=== PATIENT | female | born 1985 | race Caucasian/White ===

== ENCOUNTER 2021-10-21 12:51 | Emergency (ER) | payer OTHER ==
[~2021-10-21] VITALS: Ht 177.8 cm; Wt 98.9 kg
--- NOTE | 2021-10-21 13:18 | PHYS DOC ---
Past Medical History Past Surgical History: Tonsillectomy, Other Additional Past Surgical Histo: General Adult EDM: Chief Complaint: ABDOMINAL PAIN HPI: HPI: Patient is a 36-year-old female presents emergency department complaining of epigastric pain since last Thursday. Patient reports discomfort comes and goes, describes as sometimes burning, sometimes pressure, sometimes pain. Patient reports currently a pressure feeling that radiates to her mid to upper back without other radiation. Patient does report nausea, denies vomiting, reports 1 diarrhea spell today. Patient states she thinks she was constipated but had large bowel movement today. Patient reports a history of gallbladder and pancreatitis attack 14 years ago, is unsure the source of disease. Patient reports symptoms worse at night when she lies down to sleep, denies changes in symptoms with eating food or drinking fluids. Patient has not taken any medications for her epigastric pain symptoms. Patient denies vaginal discharge, rashes to her vagina, STI concerns, increased urinary pressure, urinary burning, or other dysuria, chest pains, shortness of breath, syncopal or near syncopal episodes. Patient denies chest congestion. States she has received the COVID- 19 virus vaccine series with booster. Also states her tested +3 weeks ago. Patient denies history of cigarette smoking, reports drinking alcohol 1-2 times a month on occasion, denies illicit drug use. Denies a family history of cardiac disease or sudden cardiac . Reports mom at age 52 from lung cancer, dad is alive and has CCL cancer. Patient denies allergies to medications, reports taking a vitamin, probiotic, recently took DayQuil for which he describes as cold-like signs and symptoms that have resolved. Patient reports her last menstrual cycle was 2 weeks ago with heavier flow than normal, reports stopping her control pills at the end of August related to her having a vasectomy. Denies surgical history. Patient denies oth er physical complaints or physical concerns. Review of Systems: Review of Systems: 14 body systems of review of systems have been reviewed. See HPI for pertinent positives and negative responses, otherwise all other systems are negative, nonpertinent or noncontributory. Constitutional: Negative except as outlined in HPI above. Skin: Negative except as outlined in HPI above. Eyes: Negative except as outlined in HPI above. HENT: Negative except as outlined in HPI above. Respiratory: Negative except as outlined in HPI above. Cardiovascular: Negative except as outlined in HPI above. GI: Negative except as outlined in HPI above. : Negative except as outlined in HPI above. Musculoskeletal: Negative except as outlined in HPI above. Integument: Negative except as outlined in HPI above. Neurologic: Negative except as outlined in HPI above. Endocrine: Negative except as outlined in HPI above. Lymphatic: Negative except as outlined in HPI above. Psychiatric: Negative except as outlined in HPI above. Heart Score: C/O Chest Pain: No Risk Factors: Risk Factors: DM, Current or recent (<one month) smoker, HTN, HLP, family history of CAD, obesity. Risk Scores: Score 0 - 3: 2.5% MACE over next 6 weeks - Discharge Home Score 4 - 6: 20.3% MACE over next 6 weeks - Admit for Clinical Observation Score 7 - 10: 72.7% MACE over next 6 weeks - Early Invasive Strategies Allergies: Allergies: Allergies Coded Allergies Type Severity Reaction Last Updated Verified No Known Drug Allergies 10/21/21 No Physical Exam: PE: Constitutional: Well developed, well nourished, no acute distress, non-toxic appearance. 36-year-old female in no apparent distress. HENT: Normocephalic, atraumatic. Eyes: Conjunctiva normal, no discharge. Neck: Normal range of motion, no stridor. Cardiovascular: No cyanosis appreciated, distal cap refill less than 2 seconds. Lungs & Thorax: Patient is in no respiratory distress, no audible adventitious lung sounds appreciated. Abdomen: Abdomen soft, no masses or megaly, normal bowel sounds all 4 quadrants, pain to palpation at epigastric area, no Silva sign, no rebound tenderness, negative psoas sign, negative straight leg raise sign. No bruising or abnormal discoloration of the abdomen, no surgical scars present. Skin: Warm, dry, no erythema, no rash. Back: No tenderness, no deformities. Extremities: No tenderness, no cyanosis, no clubbing, ROM intact, no edema. Neurologic: Alert and oriented X 3, normal motor function, normal sensory function, no focal deficits noted. Psychologic: Affect normal, judgement normal, mood normal. Current Patient Data: Labs: Laboratory Tests Test 10/21/21 13:14 10/21/21 13:20 10/21/21 13:35 10/21/21 14:08 Urine Collection Type Unknown Urine Color Yellow Urine Clarity Clear Urine pH 6.0 Urine Specific [place] 1.015 Urine Protein Negative mg/dL Urine Glucose (UA) Negative mg/dL Urine Ketones (Stick) Negative mg/dL Urine Blood Negative Urine Nitrite Negative Urine Bilirubin Negative Urine Urobilinogen Dipstick 0.2 mg/dL Urine Leukocyte Esterase Negative Urine RBC Occ /HPF Urine WBC 1-4 /HPF Urine Squamous Epithelial Cells Mod /LPF Urine Bacteria Many /HPF Urine Mucus Slight /LPF Bedside Urine HCG, Qualitative Hcg negative White Blood Count 8.5 x10^3/uL Red Blood Count 5.13 x10^6/uL Hemoglobin 13.7 g/dL Hematocrit 42.0 % Mean Corpuscular Volume 82 fL Mean Corpuscular Hemoglobin 27 pg Mean Corpuscular Hemoglobin Concent 33 g/dL Red Cell Distribution Width 13.9 % Platelet Count 307 x10^3/uL Neutrophils (%) (Auto) 56 % Lymphocytes (%) (Auto) 34 % Monocytes (%) (Auto) 9 % Eosinophils (%) (Auto) 1 % Basophils (%) (Auto) 1 % Neutrophils # (Auto) 4.8 x10^3/uL Lymphocytes # (Auto) 2.9 x10^3/uL Monocytes # (Auto) 0.7 x10^3/uL Eosinophils # (Auto) 0.1 x10^3/uL Basophils # (Auto) 0.0 x10^3/uL Sodium Level 142 mmol/L Potassium Level 3.8 mmol/L Chloride Level 103 mmol/L Carbon Dioxide Level 27 mmol/L Anion Gap 12 Blood Urea Nitrogen 9 mg/dL Creatinine 0.7 mg/dL Estimated GFR (Cockcroft-Gault) 95.8 BUN/Creatinine Ratio 13 Glucose Level 89 mg/dL Calcium Level 8.5 mg/dL Total Bilirubin 0.4 mg/dL Aspartate Amino Transf (AST/SGOT) 16 U/L Alanine Aminotransferase (ALT/SGPT) 45 U/L Alkaline Phosphatase 80 U/L Troponin I High Sensitivity < 4 ng/L Total Protein 8.1 g/dL Albumin 3.8 g/dL Albumin/Globulin Ratio 0.9 Lipase 101 U/L Influenza Type A Antigen Negative Influenza Type B Antigen Negative SARS-CoV-2 Antigen (Rapid) Negative Current Medications Medications (Trade) Dose Ordered Sig/Simona Route PRN Reason Start Time Stop Time Status Last Admin Dose Admin Sodium Chloride 1,000 ml @ 1,000 mls/hr 1X ONCE IV 10/21/21 14:00 10/21/21 14:59 DC 10/21/21 13:52 Ondansetron HCl (Zofran) 4 mg 1X ONCE IVP 10/21/21 14:00 10/21/21 14:01 DC 10/21/21 13:53 Iohexol (Omnipaque 300 Mg/ml) 75 ml 1X ONCE IV 10/21/21 14:00 10/21/21 14:01 DC 10/21/21 14:20 Info (CONTRAST GIVEN -- Rx MONITORING) 1 each PRN DAILY PRN MC SEE COMMENTS 10/21/21 14:00 10/23/21 13:59 Multi-Ingredient Mouthwash/Gargle (Gi Cocktail) 20 ml 1X ONCE SWSW 10/21/21 14:15 10/21/21 14:17 DC 10/21/21 14:14 Iohexol (Omnipaque 300 Mg/ml) 75 ml 1X ONCE IV 10/21/21 14:15 10/21/21 14:17 DC Vital Signs: Vital Signs Date Time Temp Pulse Resp B/P (MAP) Pulse Ox O2 Delivery O2 Flow Rate FiO2 10/21/21 13:03 98.2 76 18 156/90 (112) 98 Room Air 98.2 EKG: EKG: EKG performed at 1405 by ED nursing staff shows a normal sinus rhythm without other ectopy, heart rate 61 bpm, NV interval 0.176, QTc interval 0.408, no acute STEMI, no ACS, no acute ischemia appreciated, EKG interpreted by ED attending physician Dr. Barrios. Radiology/Procedures: Radiology/Procedures: PROCEDURE: CHEST AP ONLY EXAM: Chest, single view. HISTORY: Epigastric pain. COMPARISON: None. FINDINGS: A frontal view of the chest is obtained. There is increased opacif ication of the lower thorax due to asymmetric overlying soft tissues. There is no consolidation, pleural effusion or pneumothorax. The heart is normal in size. IMPRESSION: No acute pulmonary finding. Electronically signed by: Lovely Sesay MD (10/21/2021 2:01 PM) [id number] REASON: Epigastric pain, history of pancreas/gallbladder disease PROCEDURE: ABDOMEN LTD EXAM: Abdomen sonogram. HISTORY: Epigastric pain. TECHNIQUE: Sonographic imaging of the abdomen was performed. COMPARISON: None. FINDINGS: The liver is normal in size. No hepatic lesion is seen. The gallbladder is unremarkable. The common bile duct is normal in caliber. The right kidney, pancreas and inferior vena cava are unremarkable. IMPRESSION: No acute sonographic finding. Electronically signed by: Lovely Sesay MD (10/21/2021 2:09 PM) [id number] REASON: Epigastric pain history of pancreatitis and gallbladder disease PROCEDURE: CT ABD PELV W/ IV CONTRST ONLY Examination: CT of the abdomen pelvis with IV contrast HISTORY: History of epigastric pain, pancreatitis COMPARISON: 07/22/2012 TECHNIQUE: Axial CT images of abdomen is performed with IV contrast. Coronal and sagittal reformats are performed. Exposure: One or more of the following individualized dose reduction techniques were utilized for this examination: 1. Automated exposure control 2. Adjustment of the mA and/or kV according to patient size 3. Use of iterative reconstruction technique. Findings: The bibasilar lungs are clear. No evidence of free air identified in the abdomen The liver, spleen, adrenals grossly appears unremarkable. The gallbladder is mildly distended. The stomach is mildly distended with visualized pancreas grossly appears unremarkable. The small bowel is nondilated. Feces and gas noted in the colon. The bilateral kidneys enhance symmetrically. No evidence of lytic bony destructive lesion. IMPRESSION: No acute intra-abdominal findings. Electronically signed by: Geovani Dean MD (10/21/2021 2:58 PM) [id number] Course & Med Decision Making: Course & Med Decision Making Pertinent Labs and Imaging studies reviewed. (See chart for details) 36-year-old female, vital signs reviewed, presents emerged from concerning epigastric pain since last Thursday. Patient does report a history of pancreatitis and gallbladder attack 14 years ago, physical examination concerning for gastritis versus dyspepsia versus gallbladder/pancreatitis disease. Will order urinalysis assay, urine test, normal saline, Zofran for nausea, CBC, CMP, lipase, EKG, high-sensitivity troponin I, chest x-ray, sonogram of abdomen for gallbladder/pancreas study, CT abdomen pelvis with IV contrast. Discussed concerns with patient, reviewed ED planning, patient is amenable to ED planning. The patient is not per urine test, the patient's urine is not infected however does show bacteria without leukocyte esterase, 1-4 white blood cell count, many squamous epithelium, concerning for contaminated catch. The patient's CBC, CMP, lipase, rapid troponin I not concerning, patient's EKG is nonconcerning, chest x-ray nonconcerning, sonogram of abdomen and CT abdomen pelvis with IV contrast nonconcerning for gallbladder pancreatic disease or other abnormalities, patient's rapid flu/rapid Covid test negative, upon reevaluation of the patient, the patient reports she is pain-free and nausea free and feels much better after drinking the GI cocktail. Discussed all findings with patient, symptoms suspicious for dyspepsia, possible reflux disease, will start on p.o. Pepcid 20 mg nightly for 30-day regimen, discussed with patient calling primary care physician tomorrow for follow-up of ongoing symptoms and management of epigastric discomfort, discussed return to ER precautions and concerns, patient gave verbal understanding of and is amenable to ED discharge planning. Discussed with the patient all findings and diagnostic testing as well as the need to follow-up with their primary care provider for further evaluation and treatment or return to the ED if any new or worsening symptoms. Strict return precautions were also discussed at length, the patient voiced understanding and agreement with the discharge planning. The patient was nontoxic in appearance, in no apparent distress, and hemodynamically stable at the time of disposition. Teresa Disclaimer: Teresa Disclaimer: This electronic medical record was generated, in whole or in part, using a voice recognition dictation system. Departure Departure Impression: Primary Impression: Epigastric abdominal pain Disposition: HOME / SELF CARE / HOMELESS Condition: GOOD Referrals: NON,STAFF (PCP) Additional Instructions: You were seen today in the emergency department for epigastric discomfort for the past week. A thorough examination looking at your heart lungs and abdomen was performed today in the emergency department. Your EKG did not show any concerning findings, your chest x-ray did not show findings of heart or lung problems, your lab work did not show concerning findings of infection or electro lyte abnormalities, your urine is not infected, you are not per urine test. The CT scan and sonogram of your abdomen did not show findings of gallbladder or pancreas disease or other abnormal findings. You had reported good nausea relief with the medications given in the emergency department today also your abdominal discomfort resolved with the GI cocktail you were given to drink in the ER today. As we discussed, I suspect your symptoms may be related to acid indigestion or gastric reflux. I am starting you on a regimen of Pepcid, please take in the evening before going to bed. Please call your doctor tomorrow to make an appointment to let them know of your emergency department visit and that you are taking Pepcid so that your doctor may follow-up for any continuing epigastric discomfort problems. Please return immediately to the emergency department for worsening symptoms or other concerns. Thank you for visiting our Emergency Department. It was a pleasure taking care of you today in the emergency department and we appreciate you trusting us with your care. If any additional problems come up don't hesitate to return to visit us. Please follow up with your primary care provider so they can plan additional care if needed and know about the problem that you had. If symptoms worsen come back to the Emergency Department. Any concerning symptoms that start such as chest pain, shortness of air, weakness or numbness on one side of the body, running high fevers or any other concerning symptoms return to the ER. EMERGENCY DEPARTMENT GENERAL DISCHARGE INSTRUCTIONS Thank you for coming to [facility] Emergency Department (ED) today and trusting us with you care. We trust that you had a positive experience in our Emergency Department. If you wish to speak to the department management, you may call the Director at [phone]. YOUR FOLLOW UP INSTRUCTIONS ARE FOLLOWS: 1. Do you have a private Doctor? If you do not have a private doctor, please ask for a resource list of physicians or clinics that may be able to assist you with follow up care. 2. The Emergency Physicain has interpreted your x-rays. The X-Ray specialist will also review them. If there is a change in the findings, you will be notified in 48 hours when at all possible. 3. A lab test or culture has been done, your results will be reviewed and you will be notified if you need a change in treatment. ADDITIONAL INSTRUCTIONS AND INFORMATION: 1. Your care today has been supervised by a physician who is specially trained in emergency care. Many problems require more than one evaluation for a complete diagnosis and treatment. We recommend that you schedule your follow up appointment as recommended to ensure complete treatment of you illness or injury. If you are unable to obtain follow up care and continue to have a problem, or if your condition worsens, we recommend that you return to the ED. 2. We are not able to safely determine your condition over the phone nor are we able to give sound medical advice over the phone. For these safety reasons, if you call for medical advice we will ask you to come to the ED for further evaluation. 3. If you have any questions regarding these discharge instructions please call the ED at [phone]. SAFETY INFORMATION: In the interest of safety, wellness, and injury prevention; we encourage you to wear your sealbelt, if you smoke; quite smoking, and we encourage family to use a protective helmet for bicycling and other sporting events that present an increased risk for head injury. IF YOUR SYMPTOMS WORSEN OR NEW SYMPTOMS DEVELOP, OR YOU HAVE CONCERNS ABOUT YOUR CONDITION; OR IF YOUR CONDITION WORSENS WHILE YOU ARE WAITING FOR YOUR FOLLOW UP APPOINTMENT; EITHER CONTACT YOUR PRIMARY CARE DOCTOR, THE PHYSICIAN WHOSE NAME AND NUMBER YOU WERE GIVEN, OR RETURN TO THE ED IMMEDIATELY. Scripts Famotidine (PEPCID) 20 Mg Tablet 20 MG PO HS for Abdomen pain, #30 TAB 0 Refills Please take 1 tablet in the evening prior to bedtime daily. Prov: HARSH UPTON APRN 10/21/21 HARSH UPTON APRN Oct 21, 2021 13:18
[2021-10-21 13:29] LABS: BILIRUBIN,URINE NEGATIVE (NEG); CLARITY,URINE CLEAR; COLOR,URINE YELLOW; NITRITE,URINE NEGATIVE (NEG); PROTEIN,URINE NEGATIVE (NEG-TRACE); UROBILINOGEN,URINE 0.2 mg/dL (0.2 mg/dL)
[2021-10-21 13:38] LABS: BACTERIA,URINE MANY /HPF (0-FEW)
[2021-10-21 13:39] LABS: RBC,URINE OCC /HPF (0-2)
[2021-10-21 13:52] LABS: BASO % 1 % (0-3); EOS # 0.1 x10^3/uL (0.0-0.7); EOS % 1 % (0-3); HEMOGLOBIN 13.7 g/dL (12.0-15.5); LYMPH # 2.9 x10^3/uL (1.0-4.8); LYMPH % 34 % (24-48); MEAN CORPUSCULAR HEMOGLOBIN 27 pg (25-35); MEAN CORPUSCULAR HGB CONC 33 g/dL (31-37); MEAN CORPUSCULAR VOLUME 82 fL (79-100); MONO # 0.7 x10^3/uL (0.0-1.1); MONO % 9 % (0-9); NEUT # 4.8 x10^3/uL (1.8-7.7); NEUT % 56 % (31-73); PLATELET COUNT 307 x10^3/uL (140-400); RED BLOOD COUNT 5.13 x10^6/uL (3.50-5.40); RED CELL DISTRIBUTION WIDTH 13.9 % (11.5-14.5); WHITE BLOOD COUNT 8.5 x10^3/uL (4.0-11.0)
[2021-10-21] MEDS ORDERED: IOHEXOL 300 MG/ML 100ML VIAL. IV ONE ×2 (14:00→14:15)
[2021-10-21] MEDS ORDERED: ONDANSETRON PF 4 MG/2 ML VIAL. IVP ONE (14:00)
[2021-10-21] MEDS ORDERED: CONTRAST GIVEN. MC PRN (14:00)
[2021-10-21] MEDS ORDERED: IV NORMAL SALINE 1000ML BAG 1,000 ML IV ONE (14:00)
--- NOTE | 2021-10-21 14:03 | RAD ---
EXAM: Chest, single view. HISTORY: Epigastric pain. COMPARISON: None. FINDINGS: A frontal view of the chest is obtained. There is increased opacification of the lower thor ax due to asymmetric overlying soft tissues. There is no consolidation, pleural effusion or pneumotho rax. The heart is normal in size. IMPRESSION: No acute pulmonary finding. Electronically signed by: Lovely Sesay MD (10/21/2021 2:01 PM) [id number]
[2021-10-21 14:10] LABS: CALCIUM 8.5 mg/dL (8.5-10.1); CREATININE 0.7 mg/dL (0.6-1.0); GFR 95.8; POTASSIUM 3.8 mmol/L (3.5-5.1)
--- NOTE | 2021-10-21 14:11 | RAD ---
EXAM: Abdomen sonogram. HISTORY: Epigastric pain. TECHNIQUE: Sonographic imaging of the abdomen was performed. COMPARISON: None. FINDINGS: The liver is normal in size. No hepatic lesion is seen. The gallbladder is unremarkable. Th e common bile duct is normal in caliber. The right kidney, pancreas and inferior vena cava are unrema rkable. IMPRESSION: No acute sonographic finding. Electronically signed by: Lovely Sesay MD (10/21/2021 2:09 PM) [id number]
[2021-10-21] MEDS ORDERED: LIDO:MAALOX 1:1 20 ML SINGLE DOSE. SWSW ONE (14:15)
[2021-10-21 14:16] LABS: ALBUMIN 3.8 g/dL (3.4-5.0); ALBUMIN/GLOBULIN RATIO 0.9 (1.0-1.7); TOTAL BILIRUBIN 0.4 mg/dL (0.2-1.0); TOTAL PROTEIN 8.1 g/dL (6.4-8.2)
[2021-10-21 14:39] LABS: INFLUENZA A PATIENT NEGATIVE (NEGATIVE); INFLUENZA B PATIENT NEGATIVE (NEGATIVE)
--- NOTE | 2021-10-21 15:00 | RAD ---
Examination: CT of the abdomen pelvis with IV contrast HISTORY: History of epigastric pain, pancreatitis COMPARISON: 07/22/2012 TECHNIQUE: Axial CT images of abdomen is performed with IV contrast. Coronal and sagittal reformats a re performed. Exposure: One or more of the following individualized dose reduction techniques were utilized for thi s examination: 1. Automated exposure control 2. Adjustment of the mA and/or kV according to patient size 3. Use of iterative reconstruction technique. Findings: The bibasilar lungs are clear. No evidence of free air identified in the abdomen The liver, spleen, adrenals grossly appears unremarkable. The gallbladder is mildly distended. The st omach is mildly distended with visualized pancreas grossly appears unremarkable. The small bowel is n ondilated. Feces and gas noted in the colon. The bilateral kidneys enhance symmetrically. No evidence of lytic bony destructive lesion. IMPRESSION: No acute intra-abdominal findings. Electronically signed by: Geovani Dean MD (10/21/2021 2:58 PM) [id number]
[2021-10-21] MEDS ORDERED: FAMO-63 PO (15:28)
[2021-10-21] MEDS ORDERED: FAMOTIDINE 20 MG TABLET. PO ONE (15:30)
[2021-10-21 15:41] VITALS: BP 116/59
--- NOTE | 2021-10-22 06:30 | EKG ---
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
== END 2021-10-21 15:50 | disposition home or self-care (01) ==
LOC: ER 12:51
DX: R10.13 Epigastric pain (principal); Z20.822 Contact with and (suspected) exposure to COVID-19; R19.7 Diarrhea, unspecified; R11.0 Nausea
CPT/HCPCS: 36415; 71045; 74177; 76705; 80053; 81001; 81025; 83690; 84484; 85025; 87086; 87428; 93005; 96361; 96374; 99285; J2405; J7030; Q9967